=== PATIENT | male | born 1960 | race Caucasian/White ===

== ENCOUNTER 2018-04-18 12:00 | Inpatient (IN) | payer MEDICAID ==
[2018-04-18 12:51] LABS: ADD MAN DIFF? NO
[2018-04-18 12:58] LABS: ABNORMAL IP MESSAGE 1; BASOPHILS % 0.2 % (0.0-2.0); EOSINOPHILS % 0.2 % (0.0-7.0); HEMATOCRIT 17.4 % (42.0-52.0); LYMPHOCYTES # 0.7 10^3/ul (0.8-2.9); LYMPHOCYTES % 12.2 % (15.0-51.0); MEAN CORPUSCULAR HEMOGLOBIN 25.9 pg (29.0-33.0); MEAN CORPUSCULAR HGB CONC 32.2 g/dl (32.0-37.0); MEAN CORPUSCULAR VOLUME 80.6 fl (82.0-101.0); MEAN PLATELET VOLUME 11.4 fl (7.4-10.4); MONOCYTE # 0.3 10^3/ul (0.3-0.9); NEUTROPHIL # 4.4 10^3/ul (1.6-7.5); NEUTROPHILS % 81.7 % (39.0-77.0); PLATELET COUNT 163 10^3/UL (140-415); POSITIVE DIFF @See below; RED BLOOD COUNT 2.16 10^6/ul (4.70-6.10); RED CELL DISTRIBUTION WIDTH 19.1 % (11.5-14.5)
[2018-04-18 12:58] LABS: WHITE BLOOD COUNT 5.4 10^3/ul (4.8-10.8)
[2018-04-18 13:15] LABS: ALANINE AMINOTRANSFERASE 36 IU/L (13-69); ALBUMIN 2.1 g/dl (3.3-4.9); ALBUMIN/GLOBULIN RATIO 0.75; ALKALINE PHOSPHATASE 132 IU/L (42-121); ANION GAP 12 (5-13); ASPARTATE AMINO TRANSFERASE 47 IU/L (15-46); BILIRUBIN,INDIRECT 0.2 mg/dl (0-1.1); BILIRUBIN,TOTAL 0.2 mg/dl (0.2-1.3); BLOOD UREA NITROGEN 39 mg/dl (7-20); CALCIUM 7.7 mg/dl (8.4-10.2); CARBON DIOXIDE 20 mmol/L (21-31); CHLORIDE 103 mmol/L (97-110); CREATININE 1.39 mg/dl (0.61-1.24); Estimated GFR 53 mL/min (>60); GLUCOSE 148 mg/dl (70-220); LIPASE 122 U/L (23-300); POTASSIUM 3.7 mmol/L (3.5-5.1); SODIUM 135 mmol/L (135-144); TOTAL PROTEIN 4.9 g/dl (6.1-8.1)
[2018-04-18 13:16] LABS: INR 1.45; PROTIME 17.9 Sec (11.9-14.9); PT RATIO 1.4
[2018-04-18 13:17] LABS: HEMOGLOBIN 5.6 g/dl (14.0-18.0); PARTIAL THROMBOPLASTIN TIME 26.9 Sec (23.0-35.0)
[2018-04-18 13:20] LABS: PATH REVIEW? YES
[2018-04-18 13:25] LABS: TROPONIN-I < 0.012 ng/ml (0.000-0.120)
[2018-04-18 13:55] LABS: ANISOCYTOSIS 1+ (0-0); BAND NEUTROPHILS #M 0.2 10^3/ul (0.0-0.6); BAND NEUTROPHILS % (M) 4 % (0-4); ELLIPTO 1+ (0-0); LYMPHOCYTES #M 0.4 10^3/ul (0.8-2.9); LYMPHOCYTES % (M) 8 % (15-51); MONOCYTE #M 0.1 10^3/ul (0.3-0.9); MONOCYTES % (M) 3 % (0-11); OVALOCYTES 1+ (0-0); PLATELET ESTIMATE NORMAL; POIKILOCYTOSIS 2+ (0-0); POLYCHROMASIA 1+ (0-0); SCHISTOCYTES 1+ (0-0); SEG NEUT #M 4.6 10^3/ul (1.6-7.5); SEGMENTED NEUTROPHILS (M) % 85 % (39-77); SMUDGE%M 24 % (0-0); TARGET CELLS 1+ (0-0)
[2018-04-18] MEDS: PANTOPRAZOLE IV 80 MG in SOD CHLORIDE 0.9% 100 ML IV ×3 (14:34→23:32)
[2018-04-18] MEDS: OCTREOTIDE 500 MCG in SOD CHLORIDE 0.9% 49 ML IV (14:35)
[2018-04-18] MEDS: CEFTRIAXONE 1 GM/50 ML (PMX) 50 ML IVPB (14:35)
[2018-04-18] MEDS: PANTOPRAZOLE IV 80 MG in SOD CHLORIDE 0.9% 100 ML IVPB (14:35)
[2018-04-18] MEDS: OCTREOTIDE 50 MCG in SOD CHLORIDE 0.9% 25 ML IVPB (14:35)
[2018-04-18] MEDS ORDERED: NITROGLYCERIN (SL) 0.4 MG TAB SL (15:00)
[2018-04-18] MEDS ORDERED: DOCUSATE SODIUM 100 MG CAP PO (15:00)
[2018-04-18] MEDS ORDERED: ACETAMINOPHEN 325 MG TAB PO (15:00)
[2018-04-18] MEDS ORDERED: LORAZEPAM 2 MG INJ IV (15:00)
[2018-04-18] MEDS ORDERED: hydrALAzine 20 MG INJ IV (15:00)
[2018-04-18] MEDS ORDERED: HYDROCODONE/APAP (5/325) TAB PO (15:00)
[2018-04-18] MEDS ORDERED: ALBUTEROL/IPRATROPIUM (NEB) 3 ML AMP HHN (15:00)
[2018-04-18] MEDS ORDERED: NA PHOSPHATE/BIPHOS 133 ML ENEMA PR (15:00)
[2018-04-18] MEDS ORDERED: MAGNESIUM HYDROXIDE 30ML CUP PO (15:00)
[2018-04-18] MEDS ORDERED: NACL 0.9% 3 ML SYG IV (15:00)
[2018-04-18 15:34] LABS: FREE T4 (FREE THYROXINE) 1.85 ng/dl (0.64-1.79)
[2018-04-18 15:41] LABS: FLD MN% 48.1 %; FLD PMN% 51.9 %; FLD RBC 2000 /uL; FLD WBC 343 /cmm
[2018-04-18] MEDS: OCTREOTIDE 1 MG in DEXTROSE 5% 95 ML IV ×2 (16:00→23:29)
[2018-04-18 16:12] LABS: FLD TYPE ASCITES
[2018-04-18 16:12] LABS: FLD CLARITY SLIGHTLY HAZY
[2018-04-18 16:13] LABS: FLD COLOR YELLOW
[2018-04-18] MEDS: ONDANSETRON 4 MG INJ IV (16:26)
[2018-04-18] MEDS: morphine 2 MG INJ IV (16:28)
[2018-04-18 17:00] LABS: HAAIG REFLEX REFLEX FILED
[2018-04-18] MEDS: SOD CHLORIDE 0.9% 1,000 ML IV (17:00)
[2018-04-18 17:52] LABS: HEPATITIS B SURFACE ANTIGEN NEGATIVE (NEGATIVE)
[2018-04-18 18:10] LABS: HEPATITIS B CORE ANTIBODY NEGATIVE (NEGATIVE); HEPATITIS C VIRAL ANTIBODY NEGATIVE (NEGATIVE)
[2018-04-18 18:36] LABS: ETHANOL < 10.0 mg/dl (0-0)
[2018-04-18 19:57] LABS: IMMEDIATE SPIN CROSSMATCH 1 3
[2018-04-18 23:29] LABS: ADD UMIC NO; UR ASCORBIC ACID NEGATIVE (NEGATIVE); UR BILIRUBIN (Dip) NEGATIVE (NEGATIVE); UR BLOOD (Dip) NEGATIVE (NEGATIVE); UR CLARITY CLEAR (CLEAR); UR COLOR YELLOW (YELLOW); UR GLUCOSE (Dip) NEGATIVE (NEGATIVE); UR KETONES (Dip) NEGATIVE (NEGATIVE); UR LEUKOCYTE ESTERASE (Dip) NEGATIVE Leu/ul (NEGATIVE); UR NITRITE (Dip) NEGATIVE (NEGATIVE); UR SPECIFIC GRAVITY (Dip) 1.018 (1.003-1.030); UR TOTAL PROTEIN (Dip) NEGATIVE (NEGATIVE); UR UROBILINOGEN (Dip) NEGATIVE (NEGATIVE)
[2018-04-19] MEDS: SOD CHLORIDE 0.9% 1,000 ML IV ×4 (00:54→23:15)
[2018-04-19] MEDS: morphine 2 MG INJ IV ×2 (04:51→19:39)
[2018-04-19 05:39] LABS: BASOPHIL # 0.1 10^3/ul (0.0-0.1); BASOPHILS % 0.9 % (0.0-2.0); EOSINOPHILS # 0.2 10^3/ul (0.0-0.5); EOSINOPHILS % 2.2 % (0.0-7.0); HEMATOCRIT 23.6 % (42.0-52.0); HEMOGLOBIN 8.1 g/dl (14.0-18.0); LYMPHOCYTES # 2.8 10^3/ul (0.8-2.9); LYMPHOCYTES % 40.7 % (15.0-51.0); MEAN CORPUSCULAR HEMOGLOBIN 27.7 pg (29.0-33.0); MEAN CORPUSCULAR HGB CONC 34.3 g/dl (32.0-37.0); MEAN CORPUSCULAR VOLUME 80.8 fl (82.0-101.0); MEAN PLATELET VOLUME 11.1 fl (7.4-10.4); MONOCYTE # 0.8 10^3/ul (0.3-0.9); MONOCYTES % 11.2 % (0.0-11.0); NEUTROPHIL # 3.1 10^3/ul (1.6-7.5); NEUTROPHILS % 44.7 % (39.0-77.0); NUCLEATED RED BLOOD CELLS% 0.3 /100WBC (0.0-0.0); PLATELET COUNT 129 10^3/UL (140-415); RED BLOOD COUNT 2.92 10^6/ul (4.70-6.10); RED CELL DISTRIBUTION WIDTH 17.2 % (11.5-14.5)
[2018-04-19 05:40] LABS: ADD MAN DIFF? NO
[2018-04-19 05:53] LABS: HEMOGLOBIN A1C 5.7 % (0-5.9)
[2018-04-19 06:21] LABS: ANION GAP 6 (5-13); BLOOD UREA NITROGEN 41 mg/dl (7-20); CARBON DIOXIDE 22 mmol/L (21-31); CHLORIDE 109 mmol/L (97-110); CREATININE 1.38 mg/dl (0.61-1.24); Estimated GFR 53 mL/min (>60); GLUCOSE 88 mg/dl (70-220); MAGNESIUM 1.8 mg/dl (1.7-2.5); PHOSPHORUS 4.3 mg/dl (2.5-4.9); POTASSIUM 3.5 mmol/L (3.5-5.1); SODIUM 137 mmol/L (135-144)
[2018-04-19 06:23] LABS: HDL CHOLESTEROL 13 mg/dl (28-71); TRIGLYCERIDES 59 mg/dl (0-149)
[2018-04-19 06:49] LABS: CHOLESTEROL < 50 mg/dl (100-200)
[2018-04-19 08:10] LABS: OCCULT BLOOD STOOL POSITIVE (NEGATIVE)
[2018-04-19] MEDS: PANTOPRAZOLE IV 80 MG in SOD CHLORIDE 0.9% 100 ML IV ×2 (10:15→20:56)
[2018-04-19] MEDS: INFLUENZA VIRUS VACCINE 0.5 ML (DISPENSING) IM* (10:20)
[2018-04-19] MEDS: POTASSIUM CHLORIDE 100 ML IVPB ×2 (12:02→14:26)
[2018-04-19 12:25] LABS: HEMATOCRIT 25.7 % (42.0-52.0); HEMOGLOBIN 8.5 g/dl (14.0-18.0)
[2018-04-19] MEDS ORDERED: PROPOFOL 20 ML (15:32)
[2018-04-19] MEDS ORDERED: LIDOCAINE 100 MG SYRINGE (15:32)
[2018-04-19] MEDS ORDERED: FENTAnyl 50 MCG/ML VIAL (15:32)
[2018-04-19 18:16] LABS: HEMATOCRIT 27.6 % (42.0-52.0); HEMOGLOBIN 9.2 g/dl (14.0-18.0)
[2018-04-20 01:28] LABS: HEMATOCRIT 25.4 % (42.0-52.0); HEMOGLOBIN 8.6 g/dl (14.0-18.0)
[2018-04-20 05:31] LABS: ADD MAN DIFF? NO
[2018-04-20 05:35] LABS: WHITE BLOOD COUNT 4.8 10^3/ul (4.8-10.8)
[2018-04-20 05:35] LABS: BASOPHILS % 0.8 % (0.0-2.0); EOSINOPHILS # 0.3 10^3/ul (0.0-0.5); EOSINOPHILS % 6.7 % (0.0-7.0); HEMATOCRIT 24.9 % (42.0-52.0); HEMOGLOBIN 8.3 g/dl (14.0-18.0); LYMPHOCYTES # 1.5 10^3/ul (0.8-2.9); LYMPHOCYTES % 30.5 % (15.0-51.0); MEAN CORPUSCULAR HEMOGLOBIN 27.5 pg (29.0-33.0); MEAN CORPUSCULAR HGB CONC 33.3 g/dl (32.0-37.0); MEAN CORPUSCULAR VOLUME 82.5 fl (82.0-101.0); MEAN PLATELET VOLUME 10.8 fl (7.4-10.4); MONOCYTE # 0.6 10^3/ul (0.3-0.9); MONOCYTES % 13.4 % (0.0-11.0); NEUTROPHIL # 2.3 10^3/ul (1.6-7.5); NEUTROPHILS % 48.4 % (39.0-77.0); PLATELET COUNT 123 10^3/UL (140-415); RED BLOOD COUNT 3.02 10^6/ul (4.70-6.10); RED CELL DISTRIBUTION WIDTH 17.3 % (11.5-14.5)
[2018-04-20 06:04] LABS: ANION GAP 6 (5-13); BLOOD UREA NITROGEN 29 mg/dl (7-20); CALCIUM 7.2 mg/dl (8.4-10.2); CARBON DIOXIDE 21 mmol/L (21-31); CHLORIDE 113 mmol/L (97-110); Estimated GFR > 60 mL/min (>60); GLUCOSE 104 mg/dl (70-220); POTASSIUM 3.9 mmol/L (3.5-5.1); SODIUM 140 mmol/L (135-144)
[2018-04-20] MEDS: SOD CHLORIDE 0.9% 1,000 ML IV ×4 (06:54→19:53)
[2018-04-20] MEDS: PANTOPRAZOLE IV 80 MG in SOD CHLORIDE 0.9% 100 ML IV ×2 (07:00→12:42)
[2018-04-20] MEDS: OCTREOTIDE 1 MG in DEXTROSE 5% 95 ML IV (11:05)
[2018-04-20] MEDS: PANTOPRAZOLE 40 MG INJ IV (17:21)
[2018-04-20] MEDS: PROPRANOLOL 10 MG TAB PO (20:59)
[2018-04-21] MEDS: morphine 2 MG INJ IV (04:21)
[2018-04-21 05:29] LABS: ADD MAN DIFF? NO
[2018-04-21 05:38] LABS: WHITE BLOOD COUNT 4.9 10^3/ul (4.8-10.8)
[2018-04-21 05:38] LABS: BASOPHILS % 0.6 % (0.0-2.0); EOSINOPHILS # 0.3 10^3/ul (0.0-0.5); EOSINOPHILS % 5.3 % (0.0-7.0); HEMATOCRIT 24.3 % (42.0-52.0); HEMOGLOBIN 8.1 g/dl (14.0-18.0); LYMPHOCYTES # 1.4 10^3/ul (0.8-2.9); LYMPHOCYTES % 28.5 % (15.0-51.0); MEAN CORPUSCULAR HEMOGLOBIN 27.9 pg (29.0-33.0); MEAN CORPUSCULAR HGB CONC 33.3 g/dl (32.0-37.0); MEAN CORPUSCULAR VOLUME 83.8 fl (82.0-101.0); MEAN PLATELET VOLUME 10.5 fl (7.4-10.4); MONOCYTE # 0.6 10^3/ul (0.3-0.9); MONOCYTES % 12.9 % (0.0-11.0); NEUTROPHIL # 2.6 10^3/ul (1.6-7.5); NEUTROPHILS % 52.3 % (39.0-77.0); PLATELET COUNT 136 10^3/UL (140-415); RED CELL DISTRIBUTION WIDTH 17.9 % (11.5-14.5)
[2018-04-21] MEDS: PANTOPRAZOLE 40 MG INJ IV (05:40)
[2018-04-21 06:02] LABS: ANION GAP 4 (5-13); BLOOD UREA NITROGEN 19 mg/dl (7-20); CALCIUM 6.9 mg/dl (8.4-10.2); CARBON DIOXIDE 22 mmol/L (21-31); CHLORIDE 114 mmol/L (97-110); CREATININE 1.01 mg/dl (0.61-1.24); Estimated GFR > 60 mL/min (>60); GLUCOSE 90 mg/dl (70-220); SODIUM 140 mmol/L (135-144)
[2018-04-21 06:08] LABS: POTASSIUM 3.9 mmol/L (3.5-5.1)
[2018-04-21] MEDS: PROPRANOLOL 10 MG TAB PO (09:16)
[2018-04-21] MEDS: SOD CHLORIDE 0.9% 1,000 ML IV (13:13)
== END 2018-04-21 15:14 | disposition home or self-care (01) | DRG 378 ==
LOC: E/R 12:00 → 6WM 04-19 21:25 → ICU 14:26
PROVIDERS: Hospitalist
PROC: 0DJ08ZZ Inspection of Upper Intestinal Tract, Via Natural or Artificial Opening Endoscopic (ICD-10-PCS; principal; 2018-04-19 15:00)
PROC: 30233N1 Transfusion of Nonautologous Red Blood Cells into Peripheral Vein, Percutaneous Approach (ICD-10-PCS; 2018-04-19 15:00)
DX: K25.4 Chronic or unspecified gastric ulcer with hemorrhage (principal); D62 Acute posthemorrhagic anemia; N17.9 Acute kidney failure, unspecified; I85.00 Esophageal varices without bleeding; K70.30 Alcoholic cirrhosis of liver without ascites; K29.70 Gastritis, unspecified, without bleeding; Z72.89 Other problems related to lifestyle; R19.5 Other fecal abnormalities
CPT/HCPCS: 36415; 36430; 71045; 76700; 80048; 80053; 80061; 80307; 81003; 82270; 83036; 83690; 83735; 84100; 84439; 84443; 84484; 85014; 85018; 85025; 85610; 85730; 86704; 86709; 86803; 86850; 86900; 86901; 86920; 87070; 87081; 87086; 87102; 87116; 87340; 89051; 90686; 93005; 97161; 99291-25

== ENCOUNTER 2018-04-28 11:12 | Emergency (ER) | payer MEDICAID | END 2018-04-28 14:24 | disposition home or self-care (01) | LOC: E/R 11:12 | DX: K70.31 Alcoholic cirrhosis of liver with ascites (principal); Z98.890 Other specified postprocedural states | CPT/HCPCS: 99285-25; Z7502 ==

== ENCOUNTER 2018-11-15 09:00 | Emergency (ER) | payer MEDICAID ==
[2018-11-15] MEDS: LIDOCAINE 1% (MPF) 5 ML VIAL ×2 (13:40→13:45)
== END 2018-11-15 13:44 | disposition home or self-care (01) ==
LOC: E/R 09:00 → FTE 13:44
DX: K70.31 Alcoholic cirrhosis of liver with ascites (principal)
CPT/HCPCS: 99285-25; Z7502